=== PATIENT | male | born 2000 | race Caucasian/White ===

== ENCOUNTER 2023-11-26 11:33 | Emergency (ER) | payer BC, SELFPAY ==
[2023-11-26 11:38] VITALS: BP 211/111
[2023-11-26 11:55] VITALS: BP 189/105
[2023-11-26 12:00] VITALS: BP 178/94
[2023-11-26 12:24] LABS: Blood Urea Nitrogen 15 mg/dl (9-20); Calcium 11.1 mg/dl (8.4-10.2); Carbon Dioxide 27 mmol/L (22-30); Chloride 99 mmol/L (98-107); Glucose 102 mg/dl (70-99); Potassium 4.3 mmol/L (3.5-5.1); Sodium 136 mmol/L (135-145); eGFR > 60.00
[2023-11-26 12:36] LABS: NT-proBNP 27.7 pg/ml; Troponin I < 0.012 ng/ml
[2023-11-26 12:42] LABS: % Basophils 0.4 % (0-2); % Eosinophils 0.3 % (0-6); % Immature Granulocytes 0.6 % (0-0.5); % Monocytes 5.5 % (1.7-9.3); % Neutrophils 81.2 % (42.2-75.2); Absolute Basophils 0.1 10^3/uL (0-0.2); Absolute Immature Granulocytes 0.1 10^3/uL (0-0.05); Absolute Lymphocytes 1.4 10^3/uL (1.2-3.4); Absolute Monocytes 0.6 10^3/uL (0.1-0.6); Absolute Neutrophils 9.4 10^3/uL (1.4-6.5); Hematocrit 44.8 % (39.0-52.0); Hemoglobin 16.4 g/dL (13.0-18.0); Mean Corp Hgb Conc. 36.6 g/dL (33.0-37.0); Mean Corpuscular Hgb 32.2 pg (27.0-31.0); Mean Corpuscular Volume 87.8 fL (80.0-94.0); Mean Platelet Volume 11.2 fL (7.4-10.4); Nucleated Red Blood Cells % 0 % (-); Platelet Count 246 10^3/uL (130-400); White Blood Cell Count 11.6 10^3/uL (4.8-10.8)
[2023-11-26 12:58] VITALS: BP 155/89
--- NOTE | 2023-11-26 13:32 | ED.GENMED ---
History of Present Illness
General
Chief Complaint: Breathing Problem
Source: patient and family
Time Seen by Provider: 11/26/23 11:51
Travel History
Have you had any contact with someone who has COVID-19?: No
Do you have any symptoms of coronavirus? Fever > 100 degrees, chills, cough, shortness of breath, sore throat, loss of taste or smell, muscle aches, or headache?: No
History of Present Illness
History of Present Illness:
22-year-old male with past medical history of ventricular septal defect and hypertension (notes he stopped taking his antihypertensive medications about 4 years ago) presenting to the emergency department for evaluation of palpitations, chest
tightness and shortness of breath that started about 2 to 4 weeks ago, has been gradually worsening and today was worse than usual and accompanied while he was exerting himself moving parts to a kitchen into a house. Patient states symptoms lasted
approximately 30 minutes and then resolved spontaneously, he is asymptomatic upon arrival to the emergency department. Patient denies any diaphoresis, exertional dyspnea, orthopnea, PND, fevers or recent infection. Patient notes that he has not
seen his bilingual operator in about 4 5 years, no recent echocardiograms or outpatient testing. He does note that he drinks fairly heavily on the weekends and notes this past Sunday heads somewhere around 15 beers.
Past History
Past History
ED Past Medical History: HTN and Valvular disease
ED Past Surgical History: Tonsilectomy
Social History
Tobacco: Non-smoker
Alcohol: Binge drinker
Drug: None
Personal: Single
Living: with family
Employment: Employed
Review of Systems
Review of Systems
All Other Systems: ROS reviewed and negative except as documented in HPI and ROS
Phy Exam
Physical Exam
Physical Exam:
GENERAL: Alert , in no apparent distress
Vital signs: Profoundly hypertensive
EYE: conjunctiva clear
NECK: Supple
ENT: o/p clr, mmm.
CARDIAC: Regular rate and rhythm
LUNGS: Clear breath sounds bilaterally, no acute respiratory distress, no wheezes/rales/rhonchi
NEUROLOGICAL: Alert and oriented
SKIN: Warm and dry, skin intact.
MUSCULOSKELETAL: well perfused.
PSYCH: Normal and appropriate interaction.
Scores
Heart Failure Risk
Heart Failure Risk Score: Not Applicable
Heart Score for Chest Pain Patients
STEMI patient?: No
History: Moderately Suspicious
ECG: Normal
Age: </= 45 years
Risk Factors: No Risk Factors
Troponin: </= Normal Limit
Heart Score for Chest Pain Patients: 1
Heart Score Risk: 2.5% MACE over next 6 weeks
Withdrawal Assessment of Alcohol
Withdrawal Assessment Completed?: Not applicable
Course
Orders/Labs/Results
Orders:
Orders
11/26/23 11:40
Electrocardiogram (*1) Urgent
Reason for Study: Palpitations
11/26/23 11:41
EKG- Treatment ONCE
11/26/23 12:01
CR Chest - 2 Views Urgent
Comment:
Reason For Exam: chest pain
11/26/23 12:04
Basic Metabolic Panel Urgent
Complete Blood Count/With Diff Urgent
NT-proBNP Urgent
Troponin I Urgent
11/26/23 12:41
CT Chest With Iv Contrast Urgent
Comment:
Reason For Exam: widened mediastinum, elevated BP, chest pain
11/26/23 16:16
Amlodipine [Norvasc] 5 mg PO NOW STA
Abnormal Lab Results
11/26/23
12:04
WBC 11.6 H 10^3/uL
(4.8-10.8)
MCH 32.2 H pg
(27.0-31.0)
MPV 11.2 H fL
(7.4-10.4)
Abs Immat Gran (auto) 0.1 H 10^3/uL
(0-0.05)
Absolute Neuts (auto) 9.4 H 10^3/uL
(1.4-6.5)
Immature Gran % 0.6 H %
(0-0.5)
Neutrophils % 81.2 H %
(42.2-75.2)
Lymphocytes % 12.0 L %
(20.5-51.1)
Glucose 102 H mg/dl
(70-99)
Calcium 11.1 H mg/dl
(8.4-10.2)
11/26/23 12:04
11/26/23 12:04
Vital Signs
Initial and Last Documented VS:
Initial Vital Signs
Temp Pulse Resp BP Pulse Ox
98.1 F 64 18 211/111 97
11/26/23 11:38 11/26/23 11:38 11/26/23 11:38 11/26/23 11:38 11/26/23 11:38
Last Documented Vital Signs
Temp Pulse Resp BP Pulse Ox
98.1 F 71 9 182/103 97
11/26/23 11:38 11/26/23 16:37 11/26/23 14:00 11/26/23 17:02 11/26/23 12:18
MDM/Problems Addressed
Differential Diagnosis Includes:
Hypertensive urgency/emergency, cardiac dysrhythmia, valvular dysfunction, less concern for ACS
MDM/Problems Addressed:
22-year-old male present emergency department for evaluation of chest pain, shortness of breath and palpitations that been ongoing for a few weeks, worse today while exerting himself. On arrival to the emergency department found to be significantly
hypertensive with a blood pressure of 211/111, during my exam blood pressure was 189/105. I suspect chronic hypertension as patient's blood pressure was likely controlled previously and upon stopping the medication patient remained hypertensive but
since he has not seen any medical provider in this time, was never found to still have the hypertension. Patient's bilingual operator is [facility] so I will consult with them in terms of treatment plan and further workup. Patient will likely need to be
restarted on antihypertensives. Disposition pending
Chronic conditions affecting care: HTN
Acute Exacerbation and/or Progression of Chronic Illness: HTN
*Radiology
Radiology exam reviewed: radiology read reviewed (Prominence of the ascending aorta recommended to obtain CT of the chest with IV contrast)
*Pulse Oximetry
Patient hypoxic: no
*EKG
Interpreted by ED Provider?: Yes
Comparison EKG: no comparison EKG present
Heart Rate: 71
Rate: normal
Rhythm: sinus
[place]: normal axis
Ischemia: no ischemia
*Float Builder Interpretation
Rate: normal
Rhythm: sinus
*Critical Care Note
Total Time (30-74mins, 75-104mins- exclusive of procedures): Not Applicable
Patient Management
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
Escalation/DeEscalation of care consider admission/obs:
Patient seen and evaluated by cardiology. They are recommending starting the patient on 5 mg of amlodipine daily. Patient's CT of the chest ultimately came back without any acute pathologies but there was a pulmonary nodule noted. Patient was
provided with a printout of the CT report. Cardiology is arranging for patient to have an echocardiogram, Holter monitor and outpatient follow-up. Patient is aware of return precautions. Dietary and lifestyle modifications discussed. Patient is
ultimately stable for discharge home.
ED Attending Note
-
Portions of this chart may have been created with voice recognition software.� Occasional wrong word or��sound alike� substitutions may have occurred due to the inherent limitations of voice recognition software.
Discharge Plan
Departure
Patient Disposition: Home (Routine Discharge)
Date of Disposition: 11/26/23
Time of Disposition: 15:51
Patient with high blood pressure during this ER visit?: Yes
Discharge Problem:
Hypertension
Instructions: High Blood Pressure (DC)
Prescriptions:
New
amlodipine 5 mg tablet
5 mg PO DAILY Qty: 30 0RF
Referrals:
Maryan Gill CRNP [Specified Professional Personl] - 12/13/23 8:00 am (You have a cardiology follow up with LETY Rajput on December 13 at [address] in [address] at Dr. Barnes's office. If you can not make this appointment
please call [phone] to reschedule)
Jake Barnes MD [Family Provider] -
Activity Restrictions/Additional Instructions:
-You are scheduled for an outpatient monitor on November 27 at 10 [address] in [address] at Dr. Barnes's office. If you can not make this appointment please call [phone] to reschedule
-You are scheduled for an echocardiogram December 19 at [address] in [address] [facility] at Dr. Barnes's office. If you can not make this appointment please call [phone] to reschedule
Interventions
Interventions:
*General Assessment Last Done: 11/26/23 12:18
*Neglect/Abuse Screening Last Done: 11/26/23 12:18
*ED COVID-19 Vaccine History Last Done: 11/26/23 12:18
*Nursing Disposition Last Done: 11/26/23 17:02
ED- Cardiac Assessment Last Done: 11/26/23 12:18
ED- Pulmonary Assessment Last Done: 11/26/23 12:18
Discharge Date and Time
Discharge Date/Time: 11/26/23 17:04
--- NOTE | 2023-11-26 13:46 | CON.CAR ---
Addendum entered and electronically signed by Lorrie Rodriguez DO 11/26/23 17:45:
I saw and examined the patient.
The Synthetic Soil Blocks Pulper's note was reviewed and I agree with the note.
Comment: Seen and examined in the ED 30 alongside his father. Patient is a 22-year-old male with past medical history significant for hypertension and pulmonary stenosis and possibly a VSD in infancy. He was followed initially at [facility] for pulmonary
stenosis; father reports the VSD closed on its own. His father denies any known congenital syndromes or abnormalities. He had no exercise limitations in childhood; no recommendations for antibiotic prophylaxis. He was last seen by [facility] cardiology
in July 2017.� He was seen in our cardiology office in May 2018 with no further follow-up. He does not follow routinely with a primary care physician.� Presents to emergency department 11/26/2023 with complaints of intermittent palpitations
associated with pounding in chest and shortness of breath.� Patient reports symptoms have been ongoing for over a month.� Previously he would drink on almost a daily basis but has cut down over the last 4 to 5 months.� He continues to consume 10-12
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
he noted chest pain associated with shortness of breath and heart pounding prompting him to come to the emergency department.� On arrival his blood pressure was noted to be 211/111.� Chest x-ray demonstrated slight prominence in the region of the
ascending aorta.� Troponin undetectable.� proBNP 27.� EKG demonstrates normal sinus rhythm. At time of this evaluation patient continues to note intermittent chest pounding with telemetry noting sinus rhythm without ectopy.� He denies headache,
dizziness, near syncope, edema, orthopnea/PND.
GEN: No distress, awake, Ox3, obese
HEENT: supple, anicteric, mmm
LUNGS: CTA, no wheezes/rales
CV: Reg, S1/S2, 2/6 syst LSB murmur
ABD: soft, BS+, NT/ND
EXT: No edema, clubbing or cyanosis
NEURO: Gross non-focal
Plan:
Presents 11/26/2023 with chest pain/pounding in chest associated with shortness of breath, palpitations with hypertensive urgency
-Patient has a history of hypertension diagnosed in his teenage years previously followed at [facility] who has not been on and hypertensive therapy for some time
-He admits to a poor diet high in salt in addition to alcohol overuse particularly on the weekends
-Troponin undetectable. proBNP not elevated.
-Will start amlodipine 5 mg daily and uptitrate as an outpatient
-We discussed blood pressure goals and home monitoring
-Reviewed recommendations for a low-salt/low-carb cardiac healthy diet. Avoidance of sugary drinks. Avoidance of excessive caffeine and alcohol
-Consider outpatient workup for secondary causes
-2D echocardiogram to be arranged
Chest x-ray demonstrates slight prominence in the region of a ascending aorta with follow-up CTA benign without evidence of aortic aneurysm or dissection
Palpitations with no arrhythmia noted on telemetry
-Outpatient classroom monitor to be arranged
History of pulmonic stenosis and possibly a VSD.�
-Outpatient echocardiogram to be arranged
Original Note:
Consultation
Consultation Request
Date/Time Consultation Requested: 11/26/2023
Date/Time Consultation Performed: 11/26/2023
Requesting Provider: Dr. Carmichael/Alexander Green
Performing Provider: Syeda Valdez PA-C for Dr. Camargo
Reason for Consultation: Hypertension, chest pain, palpitations
Medical History
-
History of Present Illness:
Patient is a 22-year-old male with past medical history significant for hypertension and pulmonary stenosis which was diagnosed as a child. He was followed initially at [facility] for pulmonary stenosis and was last seen there in July 2017. He was
seen in the cardiology office in May 2018 but had failed to follow-up since then. Presents to emergency department 11/26/2023 with complaints of intermittent palpitations associated with pounding in chest and shortness of breath. Patient reports
symptoms have been ongoing for over a month. Previously he would drink on almost a daily basis but has cut down over the last 4 to 5 months. He continues to consume 10-12 beers while watching football on the weekend. He reports his
palpitations/heart pounding and shortness of breath are worse after he drinks. 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
to come to the emergency department. On arrival his blood pressure was noted to be 211/111. Chest x-ray demonstrated slight prominence in the region of the ascending aorta. Troponin undetectable. proBNP 27. EKG demonstrates normal sinus rhythm.
At time of this evaluation patient continues to note intermittent chest pressure/heavy pounding in chest. He complained of it during my examination and patient was in sinus rhythm with elevated blood pressure. He denies headache, dizziness, near
syncope, edema, orthopnea/PND.
PMH:
Pulmonary Stenosis
Hypertension
Past Medical History
Past Medical History: Other (see above)
Past Surgical History: Tonsilectomy
Social History
Tobacco: Non-Smoker
Alcohol: Other (Drinks 2-3 times a week, mostly on weekends and can drink up to 10-12 beers )
Drug: Marijuana (occasional)
Personal: Single
Living: With Family
Employment: Employed (works in a warehouse loading and unloading windows, doors and heavy materials)
Family History
Family History: Other (Father has HTN, TIA)
Allergies / Home Medications
Allergy/AdvReac Type Severity Reaction Status Date / Time
diphenhydramine AdvReac Severe Unknown Verified 11/26/23 11:37
[From Benadryl]
Review of Systems
-
History Source: Patient
All other systems: Negative unless noted
Physical Exam
Vital Signs
Temp Pulse Resp BP Pulse Ox
98.1 F 64 18 211/111 97
11/26/23 11:38 11/26/23 11:38 11/26/23 11:38 11/26/23 11:38 11/26/23 12:18
GEN: No distress, awake, Ox3, obese
HEENT: supple, anicteric, mmm
LUNGS: CTA, no wheezes/rales
CV: Reg, S1/S2, 2/6 syst LSB murmur
ABD: soft, BS+, NT/ND
EXT: No edema, clubbing or cyanosis
NEURO: Gross non-focal
SKIN: No rash, warm, dry, pink
Lab Results
11/26/23 12:04
11/26/23 12:04
Troponin I < 0.012 ng/ml 11/26/23 12:04
Esw-O-Zymskizxzvb Pept 27.7 pg/ml 11/26/23 12:04
Impression / Plan
-
PCP: Ag Sanderson
Metallurgical Laboratory Assistant: VEE Barnes, last seen in the office in 2017
Impression:
Presents 11/26/2023 with chest pain, SOB, palpitations
Hypertensive urgency
Pulmonary Stenosis
Hypertension
Plan:
Patient is a 22-year-old male with past medical history significant for hypertension and pulmonary stenosis which was diagnosed as a child. He was followed initially at [facility] for pulmonary stenosis and was last seen there in July 2017. He was
seen in the cardiology office in May 2018 but had failed to follow-up since then. Presents to emergency department 11/26/2023 with complaints of intermittent palpitations associated with pounding in chest and shortness of breath. Patient reports
symptoms have been ongoing for over a month. Previously he would drink on almost a daily basis but has cut down over the last 4 to 5 months. He continues to consume 10-12 beers while watching football on the weekend. He reports his
palpitations/heart pounding and shortness of breath are worse after he drinks. 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
to come to the emergency department. On arrival his blood pressure was noted to be 211/111. Chest x-ray demonstrated slight prominence in the region of the ascending aorta. Troponin undetectable. proBNP 27. EKG demonstrates normal sinus rhythm.
At time of this evaluation patient continues to note intermittent chest pressure/heavy pounding in chest. He complained of it during my examination and patient was in sinus rhythm with elevated blood pressure. He denies headache, dizziness, near
syncope, edema, orthopnea/PND.
-Presents 11/26/2023 with chest pain/pounding in chest associated with shortness of breath, palpitations.
-Chest x-ray demonstrates slight prominence in the region of a ascending aorta. Radiology recommending chest CT.
-Blood pressure noted to be quite hypertensive at 211/111 (this was performed with a small cuff). Repeat blood pressures show slow improvement upon repeat evaluation with large cuff 155/89. Patient had been previously on antihypertensive agent
many years ago. He does not recall the name. Would consider adding amlodipine 5 mg daily.
-Suspect elevated blood pressure is because of his chest pain, palpitations and shortness of breath. Troponin negative and EKG fails to demonstrate ischemic changes
-Patient does complain of palpitations. Would consider outpatient monitor.
-Patient has history of pulmonic stenosis. He does have a murmur on examination. Would recommend obtaining echocardiogram. This can be scheduled as outpatient.
-History of heavy alcohol use mostly on weekends. Discussed importance of minimizing ETOH.
Data Reviewed
-
EKG: Report Reviewed by me, Discussed with Physician, Discussed with Patient and Discussed with Family
Radiology: Report Reviewed by me, Discussed with Physician, Discussed with Patient and Discussed with Family
Labs: Labs Reviewed by me, Discussed with Physician, Discussed with Patient and Discussed with Family
Old Records: Reviewed
[2023-11-26 14:00] VITALS: BP 159/95
[2023-11-26] MEDS: NORVASC 5 MG PO (16:37)
[2023-11-26 17:02] VITALS: BP 182/103
== END 2023-11-26 17:04 | disposition home or self-care (01) ==
LOC: EMR 11:33
PROVIDERS: Physician Assistant Medical; EMERGENCY PHYSICIAN Emergency Medicine; FAMILY PHYSICIAN Family Medicine; OTHER PHYSICIAN Internal Medicine Cardiovascular Disease
DX: I10 Essential (primary) hypertension (principal); R07.89 Other chest pain; R06.02 Shortness of breath; I37.0 Nonrheumatic pulmonary valve stenosis; R00.2 Palpitations; R91.1 Solitary pulmonary nodule; I38 Endocarditis, valve unspecified; Z88.8 Allergy status to other drugs, medicaments and biological substances
CPT/HCPCS: 99285; 71046; 71260; 80048; 83880; 84484; 85025; 93005; Q9967

== ENCOUNTER → 2023-12-19 15:46 | Outpatient (REF) | payer BC, SELFPAY | LOC: DHCBS MAIN 15:46 | PROVIDERS: ATTENDING PHYSICIAN Internal Medicine Cardiovascular Disease; FAMILY PHYSICIAN Family Medicine | DX: R07.9 Chest pain, unspecified (principal) | CPT/HCPCS: 93306 ==